=== PATIENT | female | born 1980 | race Caucasian/White ===

== ENCOUNTER 2018-11-01 14:29 | Emergency (ER) | payer OTHER ==
[~2018-11-01] VITALS: Ht 167.6 cm; Wt 49.9 kg
[~2018-11-01 14:29] MED LIST: ADDERALL 30 MG30 MG PO; ALBUTEROL INHAL17 GM IH; ALBUTEROL2.5 MG/32 IH; ALPRAZOLAM; BUSPAR30 MG PO; CHANTIX1 MG PO; CIPROFLOXIN HC2.5 M1 OPHTHALMIC; DOXYCYCLINE 10100 MG PO; EFFEXOR XR75 MG PO; FLEXERIL PO; FLOVENT; GEODON60 MG PO; IBUPROFEN 600600 M1 PO; IMITREX4 MG/0.5 M; LAMICTAL100 MG PO; LORTAB 5-325 M1 EACH PO; NORCO 5-325 TA1 EACH PO; PERCOCET 5-3251 EACH PO; PHENERGAN 25 MG25 M1 PO; PHENERGAN 25 MG25 MG PO; PRILOSEC40 MG PO; PROMS25 WY RECTAL; PROPRANOLOL 1010 MG; PROZAC; ROBAXIN500 MG PO; TEGRETOL PO; TEGRETOL200 MG PO; TOPAMAX50 MG PO; TRIAMCINOLONE16.5 GM NASAL; VENLAFAXIN75 MG/1 T2 PO; WELLBUTRIN 100100 MG PO; WELLBUTRIN SR200 MG; XANAX 0.5 MG0.5 MG PO; ZOFRAN ODT4 MG PO; ZOFRAN4 MG PO; ZOLOFT100 MG
[2018-11-01] MEDS ORDERED: PRILOSEC 10MG C10 MG PO (14:46)
[2018-11-01 15:45] LABS: ABSOLUTE LYMPHOCYTES 1.7 thou/uL (0.8-5.3); ABSOLUTE MONOCYTES 0.3 thou/uL (0.0-1.2); ABSOLUTE NEUTROPHILS 4.5 thou/uL (1.6-8.1); BASOPHILS 0.5 %; EOSINOPHILS 0.7 %; HEMATOCRIT 32.4 % (37.0-47.0); HEMOGLOBIN 11.2 gm/dL (12.0-15.0); LYMPHOCYTES 26.3 %; MCH 31.6 pg (26.0-34.0); MCHC 34.7 g/dL (28.0-37.0); MCV 90.8 fL (80.0-100.0); MONOCYTES 4.4 %; MPV 8.7 fl. (7.2-11.1); NUCLEATED RBCS 0 /100WBC; PLATELET COUNT* 274 thou/uL (150-400); POLYS 68.1 %; RBC 3.56 mil/uL (4.20-5.00); RDW-CV 12.6 % (10.5-14.5); WBC 6.6 thou/uL (4.0-11.0)
[2018-11-01 16:04] LABS: ALBUMIN 3.5 g/dL (3.4-5.0); ALKALINE PHOSPHATASE 59 U/L (46-116); ANION GAP 11 mmol/L (7-16); BUN 12 mg/dL (7-18); CALCIUM 8.8 mg/dL (8.5-10.1); CHLORIDE 105 mmol/L (98-107); CO2 24 mmol/L (21-32); GLUCOSE 109 mg/dL (70-99); POTASSIUM 3.1 mmol/L (3.5-5.1); SGOT 9 U/L (15-37); SGPT 12 U/L (30-65); SODIUM 140 mmol/L (136-145); TOTAL BILIRUBIN 0.3 mg/dL (<0.1-1.0); TOTAL PROTEIN 6.7 g/dL (6.4-8.2); TROPONIN-I LEVEL <0.06 ng/mL (<0.06)
[2018-11-01 17:21] VITALS: BP 115/68
--- NOTE | 2018-11-02 09:10 | EKG ---
[place] [address] ELECTROCARDIOGRAM REPORT Name: JOEL MEADE TAWANA Room: [facility]#: [id number] Admission: 11/01/18 Attend Phys: Discharge: 11/01/18 Date of : 78 Report #: [id number] THIS REPORT FOR: //name// [facility] ED Test Date: 2018-11-01 Test Time: 14:47:26 Pat Name: JOEL MEADE Department: Room: Gender: F Elementary Assistant Teacher: : 1980 Requested By: Aileen Mcneal Order Number: [id number] MD: Grant Sal Measurements Intervals [place] Rate: 63 P: 42 TX: 137 QRS: 53 QRSD: 104 T: 31 QT: 440 QTc: 451 Interpretive Statements Sinus rhythm RSR' in V1 or V2, right VCD or RVH Compared to ECG 01/25/2017 10:57:17 Prolonged QT interval no longer present rate increased Electronically Signed On 11-02-2018 9:10:16 CDT by Grant Sal [email or web address] <ELECTRONICALLY SIGNED> By: Grant Sal MD, [facility] 11/02/18 0910 [id number] Grant Sal MD, FAC /EPI
== END 2018-11-01 17:20 | disposition home or self-care (01) ==
LOC: M.ERS 14:29
PROVIDERS: Nurse Practitioner
DX: F41.9 Anxiety disorder, unspecified (principal); F17.210 Nicotine dependence, cigarettes, uncomplicated; J45.909 Unspecified asthma, uncomplicated; F31.9 Bipolar disorder, unspecified; K21.9 Gastro-esophageal reflux disease without esophagitis; Z88.0 Allergy status to penicillin